=== PATIENT | male | born 1990 | race Two or more races ===

== ENCOUNTER 2021-07-21 16:08 | Emergency (ER) | payer SELFPAY ==
[~2021-07-21] VITALS: Ht 167.6 cm; Wt 79.0 kg
--- NOTE | 2021-07-21 21:02 | PHYS DOC ---
Past Medical History Past Surgical History: No Surgical History General Adult EDM: Chief Complaint: OTHER COMPLAINTS HPI: HPI: Patient is a 30 year old male who presents here with concern for accidentally swallowing part of the metal soda can tab. This occurred reportedly around 10 AM today. He has been able to eat and drink without difficulty since that time. He denies nausea or vomiting. Denies chest pain or dyspnea. He denies anorexia. He denies bowel habit changes. He reports that he felt like the inside of the cab came off and went into his drink and he swallowed it accidentally. No other accidental ingestions or other inadvertent ingestions reported. He has no active complaints. He has been here for many hours, and this occurred at 10 this morning. He has no physical complaints or discomfort at this time. Review of Systems: Review of Systems: Constitutional: Denies fever or chills. HENT: Denies nasal congestion or sore throat. Denies odynophagia or foreign body sensation. Respiratory: Denies cough or shortness of breath. [] Cardiovascular: Denies chest pain or edema. [] GI: Denies abdominal pain, nausea, vomiting, or bowel habit changes Musculoskeletal: Denies back pain or joint pain. [] Integument: Denies rash. [] Neurologic: Denies headache, focal weakness or sensory changes. [] Psychiatric: Denies depression or anxiety. [] Heart Score: C/O Chest Pain: No Risk Factors: Risk Factors: DM, Current or recent (<one month) smoker, HTN, HLP, family history of CAD, obesity. Risk Scores: Score 0 - 3: 2.5% MACE over next 6 weeks - Discharge Home Score 4 - 6: 20.3% MACE over next 6 weeks - Admit for Clinical Observation Score 7 - 10: 72.7% MACE over next 6 weeks - Early Invasive Strategies Allergies: Allergies: Allergies Coded Allergies Type Severity Reaction Last Updated Verified No Known Drug Allergies 07/21/21 No Physical Exam: PE: Constitutional: Well developed, well nourished, no acute distress, non-toxic appearance. [] HENT: Normocephalic, atraumatic, oropharynx patent and clear without exudate erythema, no swelling, no bleeding. Mucous membranes are moist Eyes: Clear are clear and anicteric Neck: Normal range of motion, no tenderness, supple, no stridor. [] Cardiovascular:Heart rate regular rhythm, well-perfused appearing. Lungs & Thorax: Bilateral breath sounds clear to auscultation, no rales, rhonchi or wheezes, no distress, no stridor. Abdomen: Abdomen soft, nondistended, nontender to palpation, normal bowel sounds, no palpable masses organomegaly Skin: Warm, dry, no erythema, no rash. [] Back: No tenderness, no CVA tenderness. [] Extremities: No deformity, no peripheral edema, no limb tenderness Neurologic: He is awake, alert, oriented x3, ambulatory with a steady gait, speech is clear and fluent, grossly normal motor function. Psychologic: Affect normal, judgement normal, mood normal. [] Current Patient Data: Vital Signs: Vital Signs Date Time Temp Pulse Resp B/P (MAP) Pulse Ox O2 Delivery O2 Flow Rate FiO2 07/21/21 19:51 98.1 60 18 99 Room Air 98.1 EKG: EKG: [] Radiology/Procedures: Radiology/Procedures: IMAGING REPORT Signed PATIENT: RONAL GREEN MACCOUNT: [id number] : 1990 LOCATION: ER AGE: 30 SEX: M EXAM STATUS: REG ER ORD. PHYSICIAN: SOLEDAD LOCKE DO REASON: concern for ingested foreign body PROCEDURE: ACUTE ABDOMEN SERIES Study: XR ABDOMEN COMP ACUTE Indication: Possible foreign body. Comparison: None. Findings: Chest: No radiodense foreign body seen within the trachea/central airways or along the expected course of the esophagus. Unremarkable lungs, cardiomediastinal silhouette and monica. Abdomen: Nonobstructive bowel gas pattern. Small amount of well-formed stool within the colon. No radiodense foreign body identified below the diaphragm. No r adiographic evidence for pneumoperitoneum. Impression: No retained radiopaque foreign body seen along the gastrointestinal tract or central airways. No acute radiographic abnormality of the chest or abdomen. Electronically signed by: MELI SHAY MD (07/21/2021 10:29 PM) [facility] DICTATED and SIGNED BY: MELI SHAY MD DATE: 07/21/21 [id number] 0 Course & Med Decision Making: Course & Med Decision Making Pertinent Labs and Imaging studies reviewed. (See chart for details) The patient's x-ray is unremarkable, no visible radiopaque foreign body is no michelle, certainly nothing that appears to be similar to a soda pop tab. He has a benign, nonsurgical exam. He has no active physical complaints. There is no indication for further invasive exams, imaging, labs at this time based on current clinical presentation. Return precautions are given. Dragon Disclaimer: DragSetgo Disclaimer: This electronic medical record was generated, in whole or in part, using a voice recognition dictation system. Departure Departure Impression: Primary Impression: No problem, feared complaint unfounded Disposition: HOME / SELF CARE / HOMELESS Condition: GOOD Referrals: NO PCP (PCP) Patient Instructions: Medical Screening Exam Additional Instructions: Your x-ray here does not demonstrate any obvious foreign body, there is no evidence that you have ingested or swallowed any metallic foreign body. You return to the ER for chest pain, shortness of breath, if you develop severe abdominal pain, uncontrolled vomiting, vomiting blood, blood in your stool or for any other concerns. You may eat a regular diet as tolerated, drink plenty of fluids and stay hydrated. Follow-up with your primary care doctor as needed. SOLEDAD LOCKE DO Jul 21, 2021 21:02
--- NOTE | 2021-07-21 22:31 | RAD ---
Study: XR ABDOMEN COMP ACUTE Indication: Possible foreign body. Comparison: None. Findings: Chest: No radiodense foreign body seen within the trachea/central airways or along the expected course of th e esophagus. Unremarkable lungs, cardiomediastinal silhouette and monica. Abdomen: Nonobstructive bowel gas pattern. Small amount of well-formed stool within the colon. No radiodense f oreign body identified below the diaphragm. No radiographic evidence for pneumoperitoneum. Impression: No retained radiopaque foreign body seen along the gastrointestinal tract or central airways. No acut e radiographic abnormality of the chest or abdomen. Electronically signed by: MELI SHAY MD (07/21/2021 10:29 PM) [facility]
== END 2021-07-21 22:41 | disposition home or self-care (01) ==
LOC: ER 16:08
DX: R09.89 Other specified symptoms and signs involving the circulatory and respiratory systems (principal); Z71.1 Person with feared health complaint in whom no diagnosis is made
CPT/HCPCS: 74022; 99283